=== PATIENT | male | born 1985 ===

== ENCOUNTER 2016-05-03 21:57 | Emergency (ER) | payer MEDICAID ==
[~2016-05-03] VITALS: Ht 167.6 cm; Wt 86.4 kg
[2016-05-03 22:24] VITALS: BP 132/88; PULSE 107; RESP 14; O2SAT 100
--- NOTE | 2016-05-03 23:59 | ED.REPORT ---
HPI-General Illness Date of Service May 03, 2016 ED Provider: Dr. Peraza Pt is a 31 y/o male w/ a hx of IV drug abuse presenting to the ED for a prescription for Suboxone. The pt has been trying to get to a [facility] outpatient program in [place] for Suboxone but they have a long waitlist. He last used IV heroin 1.5 days ago. He denies current symptoms of significant withdrawal, current abscesses, hallucinations, vomiting, history of endocarditis or bacteremia. Nursing Notes Stated Complaint: SUBOXONE Chief Complaint: Substance Abuse Nursing Notes Reviewed: Yes Allergies: Coded Allergies: No Known Allergies (Unverified , 05/03/16) Scheduled Buprenorphine HCl/Naloxone HCl (Suboxone 8 mg-2 mg Sl Film) 1 Each Film 1 EACH SL BID General Time Seen by MD: 00:01 Chief Complaint Other (Suboxone) Hx Obtained From: Patient Arrived By: Walk-in Sudden in Onset?: No Onset Occurred: 2 days ago Symptom Duration: Since onset Severity: Current: No pain currently Severity: Maximum: No pain Recent Healthcare: Previous diagnosis Similar Sx Previous: Yes Past Medical History Past Medical History IV drug abuse Past Surgical History None reported Smoking History Unknown if Ever Smoker Social History Heroin Drug Use: IV drugs Ambulatory Status Independent Review of Systems Full Review of Systems Constitutional: Denies: Chills, Fever GI: Denies: Vomiting Skin: Denies Rash Psychiatric: Denies: Hallucinations, auditory, Hallucinations, visual Complete sys rev & neg: except as marked. Physical Exam Vital Signs Vital Signs Date Time Temp Pulse Resp B/P Pulse Ox O2 Delivery O2 Flow Rate FiO2 05/04/16 00:48 36.2 102 18 128/87 97 Room Air 05/03/16 22:24 36.9 107 14 132/88 100 Room Air Initial VS: Reviewed, Vital signs abnormal Head / Eyes: Atraumatic, Normocephalic, PERRL ENT: Mucous membranes moist, Conjunctiva normal, No scleral icterus Neck: Supple, Full range of motion Respiratory: Breath sounds normal, Clear to auscultation, No respiratory distress Abdomen / GI: Soft Extremities: Vascular intact, Neuro intact, No swelling, No tenderness Skin: Warm, Dry, No cyanosis Neurologic: Alert, Oriented, Nonfocal Psychiatric: Mood/affect normal, Behavior normal, Normal thought content General/Constitutional: Awake, Alert, No acute distress, Cooperative, Not toxic appearing No significant withdrawal Cardiovascular: Heart rate NL, Regular rhythm, Heart sounds NL, No gallop, No murmurs, No rubs, Cap refill not delayed, Peripheral circulation NL Re-Eval/Medical Decision Med Decision/Clinical Course 31-year-old with care home heroin use. He is having trouble getting into MAT in [place]. He is currently going to [facility] for counseling but no Suboxone treatment as yet available. He presents here because she heard that [facility] does have available MAT slots. He has not used in almost 36 hours, but did use street Suboxone today. He was given a prescription for morphine/naloxone 8/2 daily, #7. He will schedule to see a provider at [facility] as soon as possible. Time of Eval: 00:29 Re-Evaluation/Progress Note: Pt rechecked. Informed pt of plan for treatment. Pt understands and agrees with plan for treatment. F/U instructions and RTER warnings given. All questions addressed. Counseled Regarding: Diagnosis, Need for follow-up, When/why to return to ED Discharge & Departure Primary Impression: Opioid dependence with withdrawal Disposition: Home Discharge Condition All VS Reviewed: Yes Condition: Stable Patient Instructions: Buprenorphine/Naloxone (By mouth) Additional Instructions: Buprenorphine/naloxone 8/2 film or tab, one sublingual twice a day, #14 prescription written. Call [facility] or [facility] for ongoing Suboxone treatment. [facility] Fly Attestation Portions of this note were transcribed by Lewis Carrasco. I, Dr. Peraza personally performed the history, physical exam and medical decision-making; I reviewed and confirmed the accuracy of the information in the transcribed note. Signed by Fly Oliveros, 05/04/16 - 0020 copies to: [facility] Howard L MD May 03, 2016 23:59 LEWIS CARRASCO May 04, 2016 00:02
[2016-05-04] MEDS ORDERED: BUPR1FIL3 SL (00:36)
[2016-05-04 00:48] VITALS: BP 128/87; PULSE 102; RESP 18; O2SAT 97
== END 2016-05-04 00:47 | disposition home or self-care (01) ==
LOC: SED 21:57
DX: F11.23 Opioid dependence with withdrawal (principal)

== ENCOUNTER 2016-06-08 22:11 | Emergency (ER) | payer MEDICAID ==
[~2016-06-08] VITALS: Ht 167.6 cm; Wt 86.4 kg
[~2016-06-08 22:11] MED LIST: BUPR1FIL3 SL
[2016-06-08 22:27] VITALS: BP 137/86; PULSE 85; RESP 16; O2SAT 100
--- NOTE | 2016-06-08 22:46 | ED.REPORT ---
HPI-General Illness Date of Service Jun 08, 2016 ED Provider: Cain Peraza MD Pt us a 31 year old male with a history of substance abuse who presents to the ED with a desire to obtain a prescription for Suboxone. He reports that he was on Suboxone previously, but he missed his last appointment and ran out of his prescription. Pt reports that he last used IV heroin this morning. He has no complaints at this time. Nursing Notes Stated Complaint: SUBSTANCE ABUSE Chief Complaint: Substance Abuse Nursing Notes Reviewed: Yes Allergies: Coded Allergies: No Known Allergies (Unverified , 06/08/16) Scheduled Buprenorphine HCl/Naloxone HCl (Suboxone 8 mg-2 mg Sl Film) 1 Each Film 1 EACH SL BID Buprenorphine HCl/Naloxone HCl (Suboxone 8 mg-2 mg Sl Film) 1 Each Film 1.5 EACH SL DAILY General Time Seen by MD: 22:42 Chief Complaint Other (Rx Request) Hx Obtained From: Patient Arrived By: Walk-in Sudden in Onset?: No Severity: Current: No pain currently Severity: Maximum: No pain Similar Sx Previous: Yes Past Medical History Past Medical History IV drug abuse Past Surgical History None reported Smoking History Unknown if Ever Smoker Social History Heroin Drug Use: IV drugs Ambulatory Status Independent Review of Systems Full Review of Systems Constitutional: Denies: Chills, Fever, Malaise Respiratory: Denies: Non-productive cough, Shortness of breath, Wheezing Cardiovascular: Denies: Chest pain GI: Denies: Abdominal pain, Constipation, Diarrhea, Nausea, Vomiting Male: Denies Dysuria, Denies Flank pain Musculoskeletal: Denies: Back pain, Extremity pain Neurologic: Denies: Dizziness, Headache, Syncope Complete sys rev & neg: except as marked. Physical Exam Vital Signs Vital Signs Date Time Temp Pulse Resp B/P Pulse Ox O2 Delivery O2 Flow Rate FiO2 06/08/16 22:27 36.4 85 16 137/86 100 Room Air Initial VS: Reviewed, Vital signs abnormal Head / Eyes: Atraumatic, Normocephalic, PERRL ENT: Mucous membranes moist, Conjunctiva normal, No scleral icterus Neck: Supple, Non-tender, Full range of motion Skin: Warm, Dry, No cyanosis Neurologic: Alert, Oriented, Nonfocal General/Constitutional: Awake, Alert, Cooperative Multiple healing pick sores about his bilateral lower extremities Re-Eval/Medical Decision Med Decision/Clinical Course 31-year-old female with a history of opioid dependence (heroin). He had started a Suboxone program but missed an appointment due to transportation problems and relapse. He was given a 5 day supply of Suboxone and instructions to contact the clinic and reestablish his care. Source of Hx: Old records Time of Eval: 23:46 Re-Evaluation/Progress Note: Pt is rechecked and informed of the plan to discharge him at this time. He understands and agrees, all questions are addressed. Counseled Regarding: Diagnosis, Need for follow-up, When/why to return to ED Discharge & Departure Primary Impression: Opioid dependence Substance use status: with unspecified opioid-induced disorder Qualified Code : F11.29 - Opioid dependence with unspecified opioid-induced disorder Disposition: Home Discharge Condition All VS Reviewed: Yes Condition: Stable Patient Instructions: Buprenorphine/Naloxone (By mouth) Additional Instructions: Resume your Suboxone in the morning 24 hours after your last heroin use. Suboxone 8/2 film, 1-1/2 sublingual daily, #8 prescription written. Apply the mupirocin (Bactroban) twice daily to the sores. Do not use meth or heroin. Call [phone] Saturday morning to schedule an appointment to see me at [facility] on Saturday or Saturday. [facility] JENI Bill Attestation Portions of this note were transcribed by Brisa Sanchez. I, Dr. Peraza personally performed the history, physical exam and medical decision-making; I reviewed and confirmed the accuracy of the information in the transcribed note. Signed by: Fly Velarde, 06/08/2016 24:00 copies to: [facility] ; Cain Espinal MD Jun 08, 2016 22:46 REGIS SANCHEZ Jun 08, 2016 23:31
[2016-06-08] MEDS ORDERED: Mupirocin 2% 22 Gm Ointment TOPICAL ONE (23:50)
[2016-06-08] MEDS ORDERED: BUPR1FIL3 SL (23:57)
== END 2016-06-09 00:07 | disposition home or self-care (01) ==
LOC: SED 22:11
DX: F11.20 Opioid dependence, uncomplicated (principal)

== ENCOUNTER 2016-08-03 23:08 | Emergency (ER) | payer MEDICAID ==
[~2016-08-03] VITALS: Ht 167.6 cm; Wt 81.8 kg
[2016-08-03 23:11] VITALS: BP 128/84; PULSE 105; RESP 20; O2SAT 100
[2016-08-04] MEDS ORDERED: BUPR1FIL3 SL (21:13)
== END 2016-08-03 23:24 | disposition left against medical advice (07) ==
LOC: SED 23:08
DX: F19.10 Other psychoactive substance abuse, uncomplicated (principal); Z53.21 Procedure and treatment not carried out due to patient leaving prior to being seen by health care provider

== ENCOUNTER 2016-08-04 19:53 | Emergency (ER) | payer MEDICAID ==
[~2016-08-04] VITALS: Ht 170.2 cm; Wt 81.8 kg
[2016-08-04 19:55] VITALS: BP 129/82; PULSE 92; RESP 16; O2SAT 99
--- NOTE | 2016-08-04 20:31 | ED.REPORT ---
HPI-General Illness Date of Service Aug 04, 2016 ED Provider: Cain Peraza MD A 31 year old male with a history of IV heroin abuse and methamphetamine abuse presents to the ED requesting Suboxone treatment. The pt last used at 12:00 today. He reports that there are no openings at [facility] this week. The pt has used Suboxone before, which was effective, but encountered complications and relapsed. Nursing Notes Stated Complaint: OPIATE WITHDRAWAL Chief Complaint: Substance Abuse Nursing Notes Reviewed: Yes Allergies: Coded Allergies: No Known Allergies (Unverified , 08/04/16) Scheduled Buprenorphine HCl/Naloxone HCl (Suboxone 8 mg-2 mg Sl Film) 1 Each Film 1 EACH SL BID General Time Seen by MD: 20:02 Chief Complaint Other (Suboxone request) Hx Obtained From: Patient Arrived By: Walk-in Sudden in Onset?: No Recent Healthcare: No recent hospitalization, Recent doctor visit Similar Sx Previous: Yes Past Medical History Past Medical History IV drug abuse Past Surgical History None reported Smoking History Unknown if Ever Smoker Social History Heroin Drug Use: IV drugs, Meth Ambulatory Status Independent Review of Systems Suboxone request Full Review of Systems Respiratory: Denies: Non-productive cough, Shortness of breath Cardiovascular: Denies: Chest pain GI: Denies: Abdominal pain Musculoskeletal: Denies: Back pain, Neck pain Skin: Denies Rash Complete sys rev & neg: except as marked. Physical Exam Vital Signs Vital Signs Date Time Temp Pulse Resp B/P Pulse Ox O2 Delivery O2 Flow Rate FiO2 08/04/16 19:55 36.9 92 16 129/82 99 Room Air Initial VS: Reviewed, Vital signs normal General/Constitutional: Awake, Alert Head / Eyes: Atraumatic, Normocephalic, PERRL, EOMI ENT: Atraumatic, Airway patent, Mucous membranes moist Neck: Atraumatic, Supple, Full range of motion Respiratory / Chest: Atraumatic, Breath sounds NL, Breath sounds = bilat, No respiratory distress Cardiovascular: Heart rate NL, Regular rhythm, Heart sounds NL Abdomen: Atraumatic, Soft, Non-tender Back: Atraumatic, Full range of motion Upper Extremities Upper Extremity / MS: Atraumatic, Full range of motion Lower Extremity / Pelvis / MS: Atraumatic, Full range of motion Skin: Color NL, No rash, Warm, Dry tracks, no abscess Neurologic: Oriented X3, Speech NL, No motor deficits, No sensory deficits Psychiatric: Affect NL, Mood NL Re-Eval/Medical Decision Med Decision/Clinical Course 31-year-old male with a history of IV heroin use. He has been abstinent for around 12 hours. He was given the priority access appointment line for [facility] and a prescription for Suboxone 8/2 film or tablets, one sublingual twice a day for 5 days, #10 prescribed. Source of Hx: Old records Time of Eval: 21:00 Patient Status: Condition improved Re-Evaluation/Progress Note: Pt rechecked, who is comfortable. The diagnosis and plan for discharge are discussed. The pt understands and agrees with the plan. All questions are addressed at this time. Counseled Regarding: Diagnosis, Need for follow-up, When/why to return to ED Discharge & Departure Primary Impression: Opioid dependence with withdrawal Disposition: Home Discharge Condition All VS Reviewed: Yes Condition: Stable Patient Instructions: Buprenorphine/Naloxone (By mouth) Additional Instructions: After 24 hours of abstinence from all opiates, start Suboxone 8/2, one sublingual twice daily, #10. Call the priority access line at [phone] for an appointment this week. [facility] Fly Attestation Portions of this note were transcribed by Fuad Farias. I, Dr. Peraza personally performed the history, physical exam and medical decision-making; I reviewed and confirmed the accuracy of the information in the transcribed note. Signed by: Fly Tyson, 08/04/16 and 2122. copies to: [facility] ; IDEAL Cain Dunn MD Aug 04, 2016 20:31 FUAD FARIAS Aug 04, 2016 20:40
[2016-08-04] MEDS ORDERED: BUPR1FIL3 SL (21:13)
== END 2016-08-04 21:25 | disposition home or self-care (01) ==
LOC: SED 19:53
DX: F11.23 Opioid dependence with withdrawal (principal)